=== PATIENT | male | born 1960 | race African-American/Black ===

== ENCOUNTER 2018-11-22 22:56 | Emergency (ER) | payer OTHER ==
[~2018-11-22] VITALS: Ht 185.4 cm; Wt 87.0 kg
[2018-11-23] MEDS ORDERED: TRAMADOL HCL50 MG PO (00:20)
[2018-11-23] MEDS ORDERED: VOLTAREN - GENE75 MG PO (00:20)
[2018-11-23] MEDS ORDERED: ANTIVERT PO (00:20)
[2018-11-23 00:30] VITALS: BP 156/81
== END 2018-11-23 00:34 | disposition home or self-care (01) | DRG 552 ==
LOC: ED 22:56
DX: S16.1XXA Strain of muscle, fascia and tendon at neck level, initial encounter (principal); V49.40XA Driver injured in collision with unspecified motor vehicles in traffic accident, initial encounter

== ENCOUNTER 2019-08-19 | Emergency (ER) | payer OTHER ==
[~2019-08-19] MED LIST: ANTIVERT PO; TRAMADOL HCL50 MG PO; VOLTAREN - GENE75 MG PO
[2019-08-20] MEDS ORDERED: ULTRAM50 M1 PO (01:35)
[2019-08-20] MEDS ORDERED: FLEXERIL PO (01:35)
== END 2019-08-20 01:52 | disposition home or self-care (01) | DRG 552 ==
DX: S16.1XXA Strain of muscle, fascia and tendon at neck level, initial encounter (principal); V47.5XXA Car driver injured in collision with fixed or stationary object in traffic accident, initial encounter

== ENCOUNTER 2020-01-30 07:22 | Emergency (ER) | payer OTHER ==
[~2020-01-30] VITALS: Ht 185.4 cm; Wt 95.0 kg
[~2020-01-30 07:22] MED LIST changes: +FLEXERIL PO; +ULTRAM50 M1 PO
[2020-01-30] MEDS ORDERED: NAPROXEN500 MG PO (09:03)
[2020-01-30 09:18] VITALS: BP 141/92
== END 2020-01-30 09:19 | disposition home or self-care (01) | DRG 552 ==
LOC: ED 07:22
DX: S16.1XXA Strain of muscle, fascia and tendon at neck level, initial encounter (principal); S43.401A Unspecified sprain of right shoulder joint, initial encounter; V49.40XA Driver injured in collision with unspecified motor vehicles in traffic accident, initial encounter